=== PATIENT | male | born 1985 | race Caucasian/White ===

== ENCOUNTER 2016-08-19 20:36 | Emergency (ER) | payer BC ==
[2016-08-19 16:40] LABS: BASOPHILS 0.5 %; BASOPHILS ABSOLUTE 0.03 10/3/uL (0.0-0.16); EOSINOPHILS ABSOLUTE 0.06 10/3/uL (0.0-0.53); ER CBC TAT 0 Hrs 05 Mins; HEMATOCRIT 41.7 % (40.0-51.0); IMMATURE GRANULOCYTES 0.2 %; IMMATURE GRANULOCYTES ABSOLUTE 0.01 10/3/uL (0.0-0.11); LYMPHOCYTES 28.4 %; LYMPHOCYTES ABSOLUTE 1.73 10/3/uL (0.67-4.30); MANUAL DIFF NO %; MEAN CORPUSCULAR HEMOGLOB 30.2 pg (26.0-34.0); MEAN CORPUSCULAR VOLUME 84.1 fL (80-100); MEAN PLATELET VOLUME 9.8 fL (9.2-13.0); MONOCYTES 4.9 %; NEUTROPHILS ABSOLUTE 3.96 10/3/uL (2.02-8.40); PLATELET COUNT 184 10/3/uL (150-400); RBC DISTRIBUTION WIDTH 13.3 % (12.0-16.0); RED CELL COUNT 4.96 10/6/uL (4.7-6.1); WHITE BLOOD CELLS 6.1 10/3/uL (4.5-10.5)
[2016-08-19 16:43] LABS: ASCORBIC ACID (UR NOT ORDER) NEG (NEG); BILIRUBIN, URINE NEGATIVE (NEG); ER URINALYSIS TAT 0 Hrs 10 Mins; KETONE, URINE NEGATIVE (NEG); LEUKOCYTE ESTERASE(NOT OR NEG (NEG); NITRITE (URINE) NEG (NEG); WBC (NOT ORDERED) (RFLEX) < 1 (0-5)
[2016-08-19 16:45] LABS: PARTIAL THROMBO TIME 34.2 SEC (22.5-37.2); PROTIME (NOT ORD) 13.4 SEC (12.0-14.5)
[2016-08-19 16:56] LABS: BUN (BLOOD UREA NITROGEN) 12 MG/DL (6-23); CALCIUM, SERUM 9.1 MG/DL (8.5-10.4); CHEST PAIN PROFILE TAT 0 Hrs 21 Mins; CHLORIDE, SERUM 106 MMOL/L (96-112); CO2 (CARBON DIOXIDE) 32 MMOL/L (24-34); GFR AFRICAN AMERICAN 117 ML/MIN (>=60); GFR NON AFRICAN AMERICAN 101 ML/MIN (>=60); GLUCOSE, SERUM 94 MG/DL (60-99); POTASSIUM, SERUM 3.9 MMOL/L (3.5-5.3); SODIUM, SERUM 141 MMOL/L (135-148); TROPONIN I <0.02 NG/ML (<0.05)
[2016-08-19 19:46] LABS: A/G RATIO 1.3 (0.7-1.9); ALBUMIN 4.4 G/DL (3.5-5.0); ALKALINE PHOSPHATASE 53 U/L (45-117); GLOBULIN 3.3 G/DL (2.5-4.1); SGOT(AST) 20 U/L (5-40); SGPT(ALT) 30 U/L (5-65); TOTAL BILIRUBIN 0.6 MG/DL (0-1.2); TOTAL PROTEIN 7.7 G/DL (6.0-8.5)
[~2016-08-19 20:36] MED LIST: ADVAIR250 INH; AUG875 PO; LEVAQUIN750 MG PO; PROAIR HFA INH; PROVENTSOL INH; TYLENOL PM PO
== END 2016-08-19 21:35 | disposition home or self-care (01) ==
LOC: ER 20:36
PROVIDERS: Emergency Medicine
DX: H83.09 Labyrinthitis, unspecified ear (principal); Z79.899 Other long term (current) drug therapy
CPT/HCPCS: 70450; 71020; 80048; 80053; 81001; 83735; 84484; 85025; 85610; 85730; 93005; 99284; A9270-GY